=== PATIENT | male | born 1970 | race Caucasian/White ===

== ENCOUNTER 2018-12-12 08:29 | Emergency (ER) | payer MEDICAID ==
[~2018-12-12] VITALS: Ht 175.3 cm; Wt 71.0 kg
[2018-12-12 08:33] VITALS: BP 128/66; PULSE 72; RESP 18; Ht 175.3 cm; Wt 71.0 kg
--- NOTE | 2018-12-12 09:43 | ERD ---
ER Documentation Chief Complaint Chief Complaint feels his pressure high , not taking any meds , neck pain x 3 months HPI This is a 48-year-old male with a nonsignificant past medical history presents to ED stating that when he sleeps he feels his blood pressure go up and down. I asked patient if he takes his blood pressure at home declines that he does. Patient states that he often feels little bit hot throughout the night. Patient is no history of high blood pressure. No history of diabetes. Denies chest pain, shortness breath, trouble breathing, cough, congestion, runny nose, nausea, vomiting, diarrhea, constipation. Denies any new stressors in life. ROS All systems reviewed and are negative except as per history of present illness. PMhx/Soc Medical and Surgical Hx: pt denies Medical Hx, pt denies Surgical Hx Hx Alcohol Use: No Hx Substance Use: No Hx Tobacco Use: No Physical Exam Vitals Vital Signs Date Temp Pulse Resp B/P (MAP) Pulse Ox O2 O2 Flow FiO2 Time Delivery Rate 12/12/18 98.1 72 18 128/66 98 08:33 (86) Physical Exam Physical Exam Vitals signs: Reviewed by me. General: Well developed, well nourished, in no acute distress. Patient is awake and alert. Head: Normocephalic, atraumatic. Eyes: Normal conjunctiva, Pupils PERRLA, EOM intact grossly ENT: Pharynx is clear, Moist mucous membranes, external ears, nose and mouth normal Neck: Supple, no masses, lymphadenopathy or JVD Respiratory: Clear to auscultation bilaterally with no wheezing, rhonchi, rales, no distress Cardiovascular: RRR, no murmurs, rubs, or gallops Neurologic: Alert and oriented, moving all extremities, normal speech, no focal weakness, no cerebellar signs. Normal mentation Skin: warm and dry, No rash Psych: Normal mood Procedures/MDM ER COURSE:. The patient was stable throughout ED course. I kept the patient and/or family informed of laboratory and diagnostic imaging results throughout the emergency room course. The patient was promptly evaluated and a treatment plan was devised based on H&P and other data. This plan was discussed with the patient who agreed and had no further questions or concerns prior to discharge. MEDICAL DECISION MAKING: This is a 48-year-old male with a nonsignificant past medical history presents ED stating that when he sleeps he feels his blood pressure go up and down. Patient's blood pressure in the emergency department is 128/66. I advised patient that in the emergency department he does not have elevated blood pressure. I advised patient to track blood pressure in a log so that he can take it to his primary care physician. At this time there is no cardiopulmonary emergency. No evidence of hypertensive emergency, hypertensive urgency, STEMI, NSTEMI, ACS, aortic dissection, AAA, PE, among others. Patient advised to follow up with primary care physician in the next 48 hours. return to ed with any worsening symptoms. DISPOSITION PLAN: We discussed follow up with the patient's primary care doctor within 24 to 48 hours. Patient counseled regarding my diagnostic impression and care plan. Prior to discharge all questions answered. Pt agrees with treatment plan and understands strict return precautions. Precautionary instructions provided including instructions to return to the ER if not improving or for any worsening or changing symptoms or concerns. SPECIALIST FOLLOW UP RECOMMENDED: None Patient has been advised to follow up with primary care in 1-2 days. Disclaimer: Inadvertent spelling and grammatical errors are likely due to EHR/dictation software use and do not reflect on the overall quality of patient care. Also, please note that the electronic time recorded on this note does not necessarily reflect the actual time of the patient encounter. Departure Diagnosis: Primary Impression: Encounter for medical screening examination Additional Impression: Anxiousness Condition: Stable Patient Instructions: Your Body's Response to Anxiety, Anxiety Reaction Referrals: [facility] Usted se staples hecho un examen mdico de control que le indica que no est en alissa condicin que requiera tratamiento urgente en el Departamento de Emergencia. Un estudio ms profundo y el tratamiento de meyers condicin pueden esperar sin ningn riesgo hasta que usted sea atendida/o en el consultorio de meyers mdico o alissa clnica. Es responsabilidad suya arreglar alissa kirsten para el seguimiento del ethel. MANEJO DE CONDICIONES NO URGENTES EN EL FUTURO 1) Si usted tiene un mdico de atencin primaria: Usted debera llamar a meyers mdico de atencin primaria antes de venir al departamento de emergencia. Despus de las horas de consultorio, meyers doctor o meyers asociado/a est disponible por telfono. El mdico o enfermero de bernie en el servicio telefnico puede asesorarle por johnny medio para atender el problema, o ethel contrario se puede programar alissa kirsten. 2) Si usted no tiene un mdico de atencin primaria: Llame al mdico o clnica de referencia que aparece abajo palma las horas de consultorio para hacer alissa kirsten para que le vean. CLINICAS: [facility] [phone] [facility] [phone] [facility] [phone] [place] [address] [phone] [facility] [place] [address] [phone] [facility] [phone] [address] Additional Instructions: Paciente aconseja volver a Departamento de urgencias inmediatamente para sntomas nuevos o que empeoran . Paciente aconseja posteriores con el PCP en 1-2 noonan . Paciente verbaliza la comprehensin y est de acuerdo con el tratamiento y el curso de accin. Si el paciente no tiene ninguna de atencin primaria pueden seguir con [facility] [address] [place] [address] o [facility] + [address] [address] KARISHMA OLIVER PA-C Dec 12, 2018 09:43
== END 2018-12-12 09:38 | disposition home or self-care (01) ==
LOC: FTE 08:29
DX: F41.9 Anxiety disorder, unspecified (principal)
CPT/HCPCS: 99282